=== PATIENT | male | born 1940 | race American Indian/Alaskan Native ===

== ENCOUNTER 2017-07-26 00:46 | Emergency (ER) | payer MEDICARE ==
[2017-07-26 01:41] LABS: Basophils % (Auto) 0.5 % (0.0-1.8); Eosinophils % (Auto) 0.5 % (0.0-4.3); Hematocrit 39.2 % (35.5-45.6); Hemoglobin 13.2 gm/dl (11.8-15.2); Lymphocytes # (Auto) 1.5 K/mm3 (1.2-5.4); Lymphocytes % (Auto) 16.2 % (13.4-35.0); Mean Corpuscular HGB Conc 34 % (32-34); Mean Corpuscular Hemoglobin 29 pg (28-32); Mean Corpuscular Volume 85 fl (84-94); Monocytes # (Auto) 0.7 K/mm3 (0.0-0.8); Monocytes % (Auto) 7.5 % (0.0-7.3); Platelet Count 247 K/mm3 (140-440); Red Cell Distribution Width 14.9 % (13.2-15.2)
[2017-07-26 02:15] LABS: Alanine Aminotransferase 7 units/L (7-56); Albumin 3.7 g/dL (3.9-5); BUN/Creatinine Ratio 17; Blood Urea Nitrogen 19 mg/dL (9-20); Calcium 8.5 mg/dL (8.4-10.2); Hemolysis Index 5; Lipase 13 units/L (13-60)
[2017-07-26 02:50] LABS: Bilirubin,Urine NEG (Negative); Blood,Urine MOD (Negative); Color,Urine Yellow (Yellow); Mucus,Urine FEW /HPF; Protein,Urine <15 mg/dL mg/dL (Negative); Urobilinogen,Urine < 2.0 mg/dL (<2.0)
[2017-07-26] MEDS ORDERED: MORPHINE IV ONE ×2 (05:14→06:53)
[2017-07-26] MEDS ORDERED: ZOFRAN IV ONE (05:14)
--- NOTE | 2017-07-26 05:14 | Emergency Department Report ---
Chief Complaint: Abdominal Pain Stated Complaint: STOMACH PAIN - HPI History of Present Illness: I performed screening evaluation on this patient. Mr. Parker is healthy 71 serum male who has history of hypertension. Only medication prescribed is amlodipine. No history of abdominal surgeries. Has had severe abdominal pain since 7 AM. Diffuse crampy pain. He has had constipation for the last several days. Took 1 dose of MiraLAX. Denies vomiting. Due to age and severity of pain, I have ordered CT abdomen and pelvis with IV contrast. I also ordered IV morphine and Zofran. - Exam Vital Signs: Vital Signs 07/26/17 07/26/17 00:52 01:15 Temperature 98.1 F 98.0 F Pulse Rate 63 60 Respiratory 18 17 Rate Blood Pressure 160/80 160/80 O2 Sat by Pulse 98 98 Oximetry MSE screening note: Focused history and physical exam performed. Due to findings the following was ordered: ED Medical Decision Making - Lab Data Result diagrams: 07/26/17 01:28 07/26/17 01:28 ED Disposition for MSE Condition: Stable Referrals: KEKE NEVES MD [Primary Care Provider] - 3-5 Days
[2017-07-26] MEDS ORDERED: NACL ONE (05:39)
--- NOTE | 2017-07-26 06:30 | Cat Scan Report ---
FINAL REPORT EXAM: CT ABDOMEN PELVIS W CON HISTORY: abdominal pain LEFT SIDE TECHNIQUE: CT images are acquired through the Abdomen and Pelvis arterial and delayed phases following intravenous administration of contrast. Transaxial, coronal and sagittal reformations are provided. PRIORS: None FINDINGS: Coronary artery disease is noted. Partially visualized intrathoracic contents are otherwise unremarkable. The liver, gallbladder, pancreas, spleen, and the right adrenal gland are unremarkable. There is a benign 2 centimeter left adrenal adenoma Enlarged left kidney with delayed nephrogram appearance and moderate hydronephrosis due to a 7 millimeter obstructive stone in the proximal left ureter on axial series 2, image 100. A nonobstructive left lower collecting system stone measures up to 1 cm. Nonobstructive stones in the right kidney measure up to 8 millimeters inferiorly and 5 millimeters superiorly. No right-sided hydroureteronephrosis. There is an 18 millimeter simple appearing cyst in the right lower kidney. No stone seen in the urinary bladder. Heterogeneous prostatomegaly measures up to 7 cm and has mass effect on the urinary bladder base. Pelvic phleboliths are noted. Positive enteric material is present in the distal small bowel. Sigmoid diverticulosis without surrounding inflammatory findings. Small and large bowel are normal in caliber. Appendix is normal. No free air, free fluid, or lymphadenopathy identified. Aorta is normal in course and caliber with densely scattered atherosclerosis. Superficial soft tissues are unremarkable. No acute or aggressive appearing skeletal findings. IMPRESSION: Moderate left hydroureteronephrosis due to a proximal ureteral 7 millimeter obstructive stone. There are additional nonobstructive stones in both kidneys measuring up to 8 millimeters on the right and 10 millimeters on the left. Heterogeneous prostatomegaly measures up to 7 cm with mass effect on the urinary bladder base. Benign left adrenal 2 centimeter adenoma. Coronary artery disease.
[2017-07-26 06:32] VITALS: BP 153/77
--- NOTE | 2017-07-26 06:34 | Emergency Department Report ---
ED Abdominal Pain HPI - General Chief Complaint: Abdominal Pain Stated Complaint: STOMACH PAIN Time Seen by Provider: 07/26/17 06:24 Source: patient Mode of arrival: Ambulatory Limitations: No Limitations - History of Present Illness Initial Comments: Patient is 77-year-old -[place] male with past medical history hypertension on amlodipine. Patient presented to the ER with a chief complaint of sudden onset of diffuse abdominal pain, crampy in nature. Patient stated that he took Pepto-Bismol and MiraLAX and his pain is better now. Patient at this moment he stated that he does not have any pain. Patient denied any nausea or vomiting or diarrhea. No fever or chills. Patient also denied any chest pain or back pain. MD Complaint: abdominal pain -: Sudden, Last night Location: diffuse Radiation: none Migration to: no migration Severity: moderate Severity scale (0 -10): 9 Quality: cramping Improves With: bowel movement Associated Symptoms: constipation. denies: nausea, vomiting, diarrhea, chills, dysuria, hematemesis, melena, hematuria, anorexia - Related Data Allergies Allergy/AdvReac Type Severity Reaction Status Date / Time No Known Allergies Allergy Unverified 07/26/17 01:18 ED Review of Systems ROS: Stated complaint: STOMACH PAIN Other details as noted in HPI Comment: All other systems reviewed and negative Constitutional: denies: chills, fever Respiratory: denies: cough, orthopnea, shortness of breath, SOB with exertion, SOB at rest Cardiovascular: denies: chest pain, palpitations, dyspnea on exertion, edema Gastrointestinal: abdominal pain, constipation. denies: nausea, vomiting, diarrhea, hematemesis, melena, hematochezia Genitourinary: denies: urgency, dysuria, frequency, hematuria, testicular pain, testicular mass Skin: denies: rash Neurological: denies: headache, weakness, numbness, paresthesias ED Past Medical Hx - Past Medical History Hx Hypertension: Yes - Surgical History Past Surgical History?: No - Social History Smoking Status: Former Smoker Substance Use Type: None ED Physical Exam - General Limitations: No Limitations General appearance: alert, in no apparent distress - Head Head exam: Present: atraumatic, normocephalic, normal inspection - Eye Eye exam: Present: normal appearance - ENT ENT exam: Present: normal exam, normal orophraynx, mucous membranes moist - Neck Neck exam: Present: normal inspection, full ROM. Absent: tenderness, meningismus, lymphadenopathy - Respiratory Respiratory exam: Present: normal lung sounds bilaterally. Absent: respiratory distress, wheezes, rales, rhonchi, stridor, chest wall tenderness, accessory muscle use, decreased breath sounds, prolonged expiratory - Cardiovascular Cardiovascular Exam: Present: regular rate, normal rhythm, normal heart sounds. Absent: bradycardia, tachycardia, irregular rhythm, systolic murmur, diastolic murmur, rubs - GI/Abdominal GI/Abdominal exam: Present: soft, normal bowel sounds. Absent: distended, tenderness, guarding, rebound, rigid, diminished bowel sounds, organomegaly, mass, bruit, pulsatile mass, hernia - Extremities Exam Extremities exam: Present: normal inspection, full ROM, normal capillary refill. Absent: tenderness, pedal edema, joint swelling, calf tenderness - Back Exam Back exam: Present: normal inspection, full ROM. Absent: tenderness, CVA tenderness (R), CVA tenderness (L), muscle spasm, paraspinal tenderness, vertebral tenderness, rash noted - Neurological Exam Neurological exam: Present: alert, oriented X3, CN II-XII intact, normal gait - Skin Skin exam: Present: warm, intact, normal color ED Course Vital Signs 07/26/17 07/26/17 07/26/17 00:52 01:15 06:16 Temperature 98.1 F 98.0 F Pulse Rate 63 60 Respiratory 18 17 17 Rate Blood Pressure 160/80 160/80 Blood Pressure [Right] O2 Sat by Pulse 98 98 Oximetry 07/26/17 07/26/17 06:18 06:20 Temperature Pulse Rate 62 Respiratory 17 16 Rate Blood Pressure Blood Pressure 153/77 [Right] O2 Sat by Pulse 98 100 Oximetry - Reevaluation(s) Reevaluation #1: 07/26/17 06:47 Patient stated that his symptoms is improving significantly after morphine and Zofran. Patient informed about his CT scan findings which include a 7 mm obstructing left ureter stone and the need to follow-up with a urologist. I gave the patient Dr. Abdullahi to follow-up in the next 2-3 days. ED Medical Decision Making - Lab Data Result diagrams: 07/26/17 01:28 07/26/17 01:28 - Radiology Data Radiology results: report reviewed Referring Physician: Caitlyn Gudino Patient Name: AKBAR ROBERTSON Date of : 1940 Sex: Male Report Date: 2017-07-26 Report Status: Finalized Findings [facility] [address] [place] [address] Cat Scan Report Signed Patient: AKBAR ROBERTSON MR#: [id number] : 1940 Acct:[id number] Age/Sex: 77 / M ADM Date: 07/26/17 Loc: ED Attending Dr: Ordering Physician: Caitlyn Gudino MD Date of Service: 07/26/17 Procedure(s): CT abdomen pelvis w con Accession Number(s): [id number] cc: Caitlyn Gudino MD FINAL REPORT EXAM: CT ABDOMEN PELVIS W CON HISTORY: abdominal pain LEFT SIDE TECHNIQUE: CT images are acquired through the Abdomen and Pelvis arterial and delayed phases following intravenous administration of contrast. Transaxial, coronal and sagittal reformations are provided. PRIORS: None FINDINGS: Coronary artery disease is noted. Partially visualized intrathoracic contents are otherwise unremarkable. The liver, gallbladder, pancreas, spleen, and the right adrenal gland are unremarkable. There is a benign 2 centimeter left adrenal adenoma Enlarged left kidney with delayed nephrogram appearance and moderate hydronephrosis due to a 7 millimeter obstructive stone in the proximal left ureter on axial series 2, image 100. A nonobstructive left lower collecting system stone measures up to 1 cm. Nonobstructive stones in the right kidney measure up to 8 millimeters inferiorly and 5 millimeters superiorly. No right-sided hydroureteronephrosis. There is an 18 millimeter simple appearing cyst in the right lower kidney. No stone seen in the urinary bladder. Heterogeneous prostatomegaly measures up to 7 cm and has mass effect on the urinary bladder base. Pelvic phleboliths are noted. Positive enteric material is present in the distal small bowel. Sigmoid diverticulosis without surrounding inflammatory findings. Small and large bowel are normal in caliber. Appendix is normal. No free air, free fluid, or lymphadenopathy identified. Aorta is normal in course and caliber with densely scattered atherosclerosis. Superficial soft tissues are unremarkable. No acute or aggressive appearing skeletal findings. IMPRESSION: Moderate left hydroureteronephrosis due to a proximal ureteral 7 millimeter obstructive stone. There are additional nonobstructive stones in both kidneys measuring up to 8 millimeters on the right and 10 millimeters on the left. Heterogeneous prostatomegaly measures up to 7 cm with mass effect on the urinary bladder base. Benign left adrenal 2 centimeter adenoma. Coronary artery disease. Transcribed By: AGAPITO Dictated By: KEKE MARINA MD Electronically Authenticated By: KEKE MARINA MD Signed Date/Time: 07/26/17624 DD/ 4 TD/TT: 07/26/17624 Critical care attestation.: If time is entered above; I have spent that time in minutes in the direct care of this critically ill patient, excluding procedure time. ED Disposition Clinical Impression: Abdominal pain, Ureteric colic, Kidney stone on left side Disposition: - TO HOME OR SELFCARE Is pt being admited?: No Condition: Stable Instructions: Kidney Stones (ED), How to Strain Your Urine (ED), Renal Colic ( ED) Referrals: GRANT ABDULLAHI MD [Staff Physician] - 3-5 Days
== END 2017-07-26 07:01 | disposition home or self-care (01) ==
LOC: ED 00:46
DX: N20.2 Calculus of kidney with calculus of ureter (principal); K59.00 Constipation, unspecified; I10 Essential (primary) hypertension; Z87.891 Personal history of nicotine dependence
CPT/HCPCS: 36415; 74177; 80053; 81001; 83690; 85025; 96374; 96375; 96376; 99284; J2270; J2405; Q9967

== ENCOUNTER 2017-07-27 16:13 | Emergency (ER) | payer MEDICARE ==
--- NOTE | 2017-07-27 18:15 | Emergency Department Report ---
ED Fall HPI - General Chief Complaint: Fall Stated Complaint: FALL/HEAD INJURY Time Seen by Provider: 07/27/17 18:05 Source: patient Mode of arrival: Ambulatory - History of Present Illness Initial Comments: Patient is 77-year-old male who was seen yesterday diagnosed with kidney stone. Patient was given Percocet and Flomax. Patient stated that he was going to the bathroom and he tripped and fell and hit his head and left knee. Patient denied any loss of consciousness, headache, weakness numbness of tingling sensation. No fever. MD Complaint: fall Fall From: standing Place Fall Occurred: home Symptoms Prior to Fall: none Location: head Location - Extremities: Left: Knee Severity scale (0 -10): 4 Quality: sharp - Related Data Home Medications Medication Instructions Recorded Confirmed Last Taken Amlodipine Besylate [Norvasc] 10 mg PO QDAY 07/27/17 07/27/17 Unknown Previous Rx's Medication Instructions Recorded Last Taken Type Ondansetron [Zofran Odt] 4 mg PO Q8HR PRN #14 tab.rapdis 07/26/17 Unknown Rx Tamsulosin [Flomax] 0.4 mg PO QDAY #14 cap 07/26/17 Unknown Rx oxyCODONE /ACETAMINOPHEN [Percocet 1 tab PO Q6HR PRN #14 tablet 07/26/17 Unknown Rx 5/325] Allergies Allergy/AdvReac Type Severity Reaction Status Date / Time No Known Allergies Allergy Unverified 07/26/17 01:18 ED Review of Systems ROS: Stated complaint: FALL/HEAD INJURY Other details as noted in HPI Comment: All other systems reviewed and negative Respiratory: denies: cough, orthopnea, shortness of breath, SOB with exertion Cardiovascular: denies: chest pain, palpitations, dyspnea on exertion Gastrointestinal: denies: abdominal pain, nausea, vomiting, diarrhea, constipation Neurological: headache. denies: weakness, numbness, paresthesias, confusion, abnormal gait, vertigo ED Past Medical Hx - Past Medical History Hx Hypertension: Yes - Social History Smoking Status: Never Smoker Substance Use Type: None - Medications Home Medications: Home Medications Medication Instructions Recorded Confirmed Last Taken Type Ondansetron [Zofran Odt] 4 mg PO Q8HR PRN #14 tab.rapdis 18 07/27/17 Unknown Rx Tamsulosin [Flomax] 0.4 mg PO QDAY #14 cap 07/26/17 07/27/17 Unknown Rx oxyCODONE /ACETAMINOPHEN [Percocet 1 tab PO Q6HR PRN #14 tablet 07/26/17 Unknown Rx 5/325] Amlodipine Besylate [Norvasc] 10 mg PO QDAY 07/27/17 07/27/17 Unknown History ED Physical Exam - General Limitations: No Limitations General appearance: alert, in no apparent distress, other (abrasion to the forehead) - Head Head exam: Present: normocephalic - Eye Eye exam: Present: normal appearance, PERRL - ENT ENT exam: Present: normal exam, normal orophraynx, mucous membranes moist - Neck Neck exam: Present: normal inspection, full ROM. Absent: tenderness, meningismus - Respiratory Respiratory exam: Present: normal lung sounds bilaterally. Absent: respiratory distress, wheezes, rales, rhonchi, stridor, chest wall tenderness, accessory muscle use, decreased breath sounds, prolonged expiratory - Cardiovascular Cardiovascular Exam: Present: regular rate, normal rhythm, normal heart sounds - GI/Abdominal GI/Abdominal exam: Present: soft, normal bowel sounds. Absent: distended, tenderness, guarding, rebound, rigid, organomegaly, mass, bruit, pulsatile mass , hernia - Extremities Exam Extremities exam: Present: normal inspection, full ROM, normal capillary refill , other (left knee tenderness, normal range of motion.) - Back Exam Back exam: Present: normal inspection, full ROM. Absent: tenderness, CVA tenderness (R), CVA tenderness (L), muscle spasm, paraspinal tenderness, vertebral tenderness, rash noted - Neurological Exam Neurological exam: Present: alert, oriented X3, CN II-XII intact, normal gait - Skin Skin exam: Present: warm, intact, normal color ED Course Vital Signs 07/27/17 07/27/17 07/27/17 16:26 18:17 18:19 Temperature 98 F 99.0 F Pulse Rate 66 61 Respiratory 18 15 15 Rate Blood Pressure 121/67 Blood Pressure 161/78 [Left] O2 Sat by Pulse 97 100 100 Oximetry ED Medical Decision Making - Radiology Data Radiology results: report reviewed Referring Physician: VILLA PENG Patient Name: AKBAR ROBERTSON Date of : 1940 Sex: Male Report Date: 2017-07-27 Report Status: Finalized Findings [address] [address] XRay Report Signed Patient: AKBAR ROBERTSON MR#: [id number] : 1940 Acct:[id number] Age/Sex: 77 / M ADM Date: 07/27/17 Loc: ED Attending Dr: Ordering Physician: VILLA PENG Date of Service: 07/27/17 Procedure(s): XR knee 3V LT Accession Number(s): [id number] cc: VILLA PENG Fluoro Time In Minutes: FINAL REPORT PROCEDURE: XR KNEE 3V LT TECHNIQUE: LEFT knee radiographs, AP, lateral and oblique views. CPT 02721 HISTORY: Knee injury. COMPARISON: No prior studies are available for comparison. FINDINGS: Fracture (s) and/or Dislocation(s): None . Alignment: Slight genu varum. Joint space(s): Moderate to severe medial and patellofemoral compartment narrowing and osteophytes. Irregularity about the superior patella on lateral view. Mild lateral compartment narrowing and osteophytes. Unfused anterior tibial apophysis. Small joint effusion. Soft tissues: Mild vascular calcification. Bone mineralization: Normal . Foreign bodies: None . IMPRESSION: Degenerative changes of the left knee. Irregularity about the superior patella felt to most likely be chronic/degenerative. There is a small joint effusion. Recommend attention followup radiographs or even CT scan if there is concern for subtle fracture that is radiographically apparent.. Transcribed By: [facility] [place] Dictated By: KAYLIN MERCHANT MD Electronically Authenticated By: KAYLIN MERCHANT MD Signed Date/Time: 07/27/171949 DD/ 49 TD/TT: 07/27/171949 Referring Physician: VILLA PENG Patient Name: AKBAR ROBERTSON Date of : 1940 Sex: Male Report Date: 2017-07-27 Report Status: Finalized Findings [facility] [address] [place] [address] Cat Scan Report Signed Patient: AKBAR ROBERTSON MR#: [id number] : 1940 Acct:[id number] Age/Sex: 77 / M ADM Date: 07/27/17 Loc: ED Attending Dr: Ordering Physician: VILLA PENG Date of Service: 07/27/17 Procedure(s): CT head/brain wo con Accession Number(s): [id number] cc: VILLA PENG FINAL REPORT PROCEDURE: CT HEAD/BRAIN WO CON TECHNIQUE: Computerized tomography of the head was performed without contrast material. HISTORY: head injury COMPARISON: No prior studies are available for comparison. FINDINGS: Skull and scalp: Normal. Paranasal sinuses: Normal. Ventricles and subarachnoid spaces: Normal. Cerebrum: No evidence of hemorrhage, acute infarction or mass . Cerebellum and brainstem: No evidence of hemorrhage, acute infarction or mass. Vasculature: Normal. Comments: None. IMPRESSION: Normal Examination Transcribed By: [facility] [place]ictated By: TIFFANIE MCKENZIE Electronically Authenticated By: TIFFANIE MCKENZIE Signed Date/Time: 07/27/172117 DD/ 17 TD/TT: 07/27/172117 Critical care attestation.: If time is entered above; I have spent that time in minutes in the direct care of this critically ill patient, excluding procedure time. ED Disposition Clinical Impression: Head injury, Knee contusion, Fall Disposition: DC-01 TO HOME OR SELFCARE Is pt being admited?: No Condition: Stable Instructions: Minor Head Injury (ED), Knee Pain (ED) Referrals: PRIMARY CARE,MD [Primary Care Provider] - 3-5 Days
[2017-07-27 18:19] VITALS: BP 161/78
--- NOTE | 2017-07-27 19:55 | XRay Report ---
FINAL REPORT PROCEDURE: XR KNEE 3V LT TECHNIQUE: LEFT knee radiographs, AP, lateral and oblique views. CPT 53997 HISTORY: Knee injury. COMPARISON: No prior studies are available for comparison. FINDINGS: Fracture (s) and/or Dislocation(s): None . Alignment: Slight genu varum. Joint space(s): Moderate to severe medial and patellofemoral compartment narrowing and osteophytes. Irregularity about the superior patella on lateral view. Mild lateral compartment narrowing and osteophytes. Unfused anterior tibial apophysis. Small joint effusion. Soft tissues: Mild vascular calcification. Bone mineralization: Normal . Foreign bodies: None . IMPRESSION: Degenerative changes of the left knee. Irregularity about the superior patella felt to most likely be chronic/degenerative. There is a small joint effusion. Recommend attention followup radiographs or even CT scan if there is concern for subtle fracture that is radiographically apparent..
--- NOTE | 2017-07-27 21:23 | Cat Scan Report ---
FINAL REPORT PROCEDURE: CT HEAD/BRAIN WO CON TECHNIQUE: Computerized tomography of the head was performed without contrast material. HISTORY: head injury COMPARISON: No prior studies are available for comparison. FINDINGS: Skull and scalp: Normal. Paranasal sinuses: Normal. Ventricles and subarachnoid spaces: Normal. Cerebrum: No evidence of hemorrhage, acute infarction or mass . Cerebellum and brainstem: No evidence of hemorrhage, acute infarction or mass. Vasculature: Normal. Comments: None. IMPRESSION: Normal Examination
== END 2017-07-27 21:48 | disposition home or self-care (01) ==
LOC: ED 16:13
DX: S09.90XA Unspecified injury of head, initial encounter (principal); S80.02XA Contusion of left knee, initial encounter; I10 Essential (primary) hypertension; W01.10XA Fall on same level from slipping, tripping and stumbling with subsequent striking against unspecified object, initial encounter; Y93.89 Activity, other specified; Y92.89 Other specified places as the place of occurrence of the external cause; Y99.8 Other external cause status
CPT/HCPCS: 70450; 99284